=== PATIENT | male | born 1990 | race Hispanic/Latino ===

== ENCOUNTER 2022-06-15 19:46 | Emergency (ER) | payer OTHER ==
[~2022-06-15] VITALS: Ht 180.3 cm; Wt 104.3 kg
[2022-06-15] MEDS ORDERED: HYDROCODONE/APAP 5MG-325MG TAB PO ONE (21:45)
[2022-06-15] MEDS ORDERED: HYDROCODONE/APAP 10MG-325MG TAB ONE (21:55)
[2022-06-15] MEDS ORDERED: NAPROSYN500 MG PO (23:54)
== END 2022-06-16 00:06 | disposition home or self-care (01) ==
LOC: ER 20:18
DX: S93.692A Other sprain of left foot, initial encounter (principal); W20.8XXA Other cause of strike by thrown, projected or falling object, initial encounter; Y92.89 Other specified places as the place of occurrence of the external cause; I10 Essential (primary) hypertension; E11.9 Type 2 diabetes mellitus without complications; F17.210 Nicotine dependence, cigarettes, uncomplicated
CPT/HCPCS: 99283

== ENCOUNTER 2022-10-03 10:29 | Emergency (ER) | payer OTHER ==
[~2022-10-03] VITALS: Ht 180.3 cm; Wt 107.1 kg
[~2022-10-03 10:29] MED LIST: NAPROSYN500 MG PO
[2022-10-03] MEDS ORDERED: METFORMIN HCL500 M2 PO (10:41)
[2022-10-03] MEDS ORDERED: LISINOPRIL5 MG PO (10:41)
[2022-10-03] MEDS ORDERED: IBUPROFEN200 MG PO (10:49)
[2022-10-03] MEDS ORDERED: DOXYCYCLINE HY100 MG PO (10:49)
[2022-10-03] MEDS ORDERED: BACITRACIN ZINC 0.9GM TP ONE (11:10)
[2022-10-03] MEDS ORDERED: LIDOCAINE HCL 1% LOCAL INJ 20 ML VIAL ONE (11:10)
[2022-10-03 11:36] VITALS: O2SAT 97
== END 2022-10-03 11:36 | disposition home or self-care (01) ==
LOC: FSED 10:32
DX: S61.412A Laceration without foreign body of left hand, initial encounter (principal); W26.0XXA Contact with knife, initial encounter; Y92.89 Other specified places as the place of occurrence of the external cause; I10 Essential (primary) hypertension; E11.9 Type 2 diabetes mellitus without complications
CPT/HCPCS: 12002; 96372; 99283; J2001

== ENCOUNTER 2025-01-25 14:40 | Emergency (ER) | payer OTHER ==
[~2025-01-25] VITALS: Ht 182.9 cm; Wt 102.1 kg
[~2025-01-25 14:40] MED LIST changes: +DOXYCYCLINE HY100 MG PO; +IBUPROFEN200 MG PO; +IBUPROFEN600 MG PO; +LISINOPRIL5 MG PO; +METFORMIN HCL500 M2 PO
[2025-01-25] MEDS ORDERED: IBUPROFEN 400 MG TAB ONE (15:35)
[2025-01-25] MEDS: IBUPROFEN 400 MG TAB PO ONE (15:43)
[2025-01-25] MEDS ORDERED: ULTRAM 50MG50 MG PO (17:01)
[2025-01-25 17:20] VITALS: PULSE 65; RESP 20; TEMP 98.2; O2SAT 99
== END 2025-01-25 17:20 | disposition home or self-care (01) ==
LOC: FSED 15:20
DX: S92.001A Unspecified fracture of right calcaneus, initial encounter for closed fracture (principal); M77.31 Calcaneal spur, right foot; Y93.02 Activity, running; Y92.320 Baseball field as the place of occurrence of the external cause; I10 Essential (primary) hypertension; E11.9 Type 2 diabetes mellitus without complications; E78.5 Hyperlipidemia, unspecified; F17.210 Nicotine dependence, cigarettes, uncomplicated
CPT/HCPCS: 99284